=== PATIENT | female | born 1940 | race Caucasian/White ===

== ENCOUNTER 2016-12-16 11:04 | Emergency (ER) | payer MEDICARE, OTHER ==
[2016-12-16 11:15] VITALS: BP 165/94
--- NOTE | 2016-12-16 12:01 | CR ---
Clinical history: 75-year-old female with abdominal pain and a history of colon cancer surgery, 23 years ago. Interpretation: 1. Atheromatous calcifications involving the aortoiliac arteries and major branches.. 2. Numerous surgical clips left upper quadrant abdomen (left renal shadow not appreciated). 3. Mild levorotoscoliosis and signs of chronic L4-5 lumbar disc disease/arthritis. 4. No other foreign body, abdominal soft tissue mass, or signs of mechanical bowel obstruction. 5. Mild cardiomegaly. Lung bases clear. 6. No free subdiaphragmatic air. 7. Impacted fracture right femoral neck (age indeterminate). CONCLUSION: Postoperative and senescent changes of the abdomen. Otherwise nonspecific plain film exa m abdomen. Lower lumbar disc disease and impacted right femoral neck fracture.
--- NOTE | 2016-12-16 12:32 | EDM.PDOC ---
ED HPI GI/ABDOMINAL - General Chief Complaint: Abdominal Pain Stated Complaint: [id number] AB PAIN Time Seen by Provider: 12/16/16 12:15 Source of Information: Reports: Patient History Limitations: Reports: No limitations - History of Present Illness INITIAL COMMENTS - FREE TEXT/NARRATIVE: This 75 yo female patient reports to the ED with diffuse abdominal pain. The patient reports that she has a history of colon cancer (25 years ago) and 3 surgeries since that time for bowel obstructions. The patient reports she normally has a bowel movement after eating, but has not had a bowel movement since eating last night. The patient reports she took Tums, but has not had symptom relief at this time. Symptom Onset Date: 12/16/16 Timing/Duration: Reports: Constant Location: generalized Quality: Reports: cramping Severity: moderate Improves with: Reports: other (passing gas) Worsens with: Reports: palpation - Related Data Allergies/ADRs: Allergies Allergy/AdvReac Type Severity Reaction Status Date / Time Penicillins Allergy Hives Verified 12/16/16 11:16 Home Meds: Home Meds Allopurinol [Zyloprim] 100 mg PO BEDTIME 12/16/16 [History] Aspirin [Halfprin] 81 mg PO DAILY 12/16/16 [History] Calcitriol [Rocaltrol] 0.25 mcg PO BID 12/16/16 [History] Calcium Carbonate/Vitamin D3 [Os-Artie 500+D] 1 tab PO ASDIRECTED 12/16/16 [ History] Clopidogrel Bisulfate [Clopidogrel] 75 mg PO DAILY 12/16/16 [History] Cyanocobalamin (Vitamin B12) [Vitamin B12] 1,000 mg PO BEDTIME 12/16/16 [History ] Ferrous Sulfate [Iron] 325 mg PO DAILY 12/16/16 [History] Metoprolol Tartrate 25 mg PO BID 12/16/16 [History] Pantoprazole [Protonix] 40 mg PO ONETIME 12/16/16 [History] amLODIPine [Norvasc] 10 mg PO DAILY 12/16/16 [History] Past Medical History HEENT History: Reports: Impaired vision Other HEENT History: wears glasses Cardiovascular History: Reports: Blood clots/VTE/DVT, Hypertension Respiratory History: Reports: None Gastrointestinal History: Reports: GERD Genitourinary History: Reports: None 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 Musculoskeletal History: Reports: None Neurological History: Reports: None Psychiatric History: Reports: None Endocrine/Metabolic History: Reports: None Hematologic History: Reports: None Immunologic History: Reports: None Oncologic (Cancer) History: Reports: Colon Dermatologic History: Reports: None - Infectious Disease History Infectious Disease History: Reports: Chicken pox, Measles, Mumps - Past Surgical History Head Surgeries/Procedures: Reports: None Cardiovascular Surgical History: Reports: Vascular surgery GI Surgical History: Reports: Appendectomy, Colon, Colonoscopy Social & Family History - Tobacco Use Smoking Status *Q: Never Smoker Second Hand Smoke Exposure: No - Caffeine Use Caffeine Use: Reports: Coffee - Recreational Drug Use Recreational Drug Use: No ED ROS GENERAL - Review of Systems Review Of Systems: ROS reveals no pertinent complaints other than HPI. ED EXAM, GI/ABD - Physical Exam Exam: See Below Exam Limited By: No limitations General Appearance: alert, WD/WN, moderate distress, thin Eyes: bilateral: normal appearance, EOMI Ears: normal external exam, normal canal, hearing grossly normal, normal TMs Nose: normal inspection, normal mucosa, no blood Throat/Mouth: Normal inspection, Normal lips, Normal teeth, Normal gums, Normal oropharynx, Normal voice, No airway compromise Head: atraumatic, normocephalic Neck: normal inspection, supple, non-tender, full range of motion Respiratory/Chest: no respiratory distress, lungs clear, normal breath sounds, no accessory muscle use, chest non-tender Cardiovascular: normal peripheral pulses, regular rate, rhythm, no edema, no gallop, no JVD, no murmur, no rub GI/Abdominal: normal bowel sounds, no organomegaly, no abnormal bruit, no mass, tenderness (diffuse), distention (moderate) (Female) Exam: Deferred Rectal (Female) Exam: Deferred Back Exam: normal inspection, full range of motion, NT Extremities: normal inspection, normal range of motion, non-tender, normal capillary refill, no pedal edema Neurological: alert, oriented, CN II-XII intact, normal cognition, normal gait, normal reflexes, no motor/sensory deficits Psychiatric: normal affect, normal mood Skin Exam: Warm, Dry, Intact, Normal color, No rash Lymphatic: no adenopathy Course - Vital Signs Last Recorded V/S: Last Vital Signs Temp 35.8 C 12/16/16 11:10 Pulse 85 12/16/16 11:10 Resp 16 12/16/16 11:10 BP 165/94 H 12/16/16 11:10 Pulse Ox 100 12/16/16 11:10 - Orders/Labs/Meds Labs: Laboratory Tests 12/16/16 12/16/16 Range/Units 11:38 11:38 WBC 11.1 H (5.0-10.0) 10^3/uL RBC 4.64 (4.2-5.4) 10^6/uL Hgb 15.0 (12.0-16.0) g/dL Hct 44.2 (37.0-47.0) % MCV 95.3 (80-100) fL MCH 32.3 (27.0-34.0) pg MCHC 33.9 (33.0-35.0) g/dL Plt Count 245 (150-450) 10^3/uL Neut % (Auto) 84.4 H (42.2-75.2) % Lymph % (Auto) 9.3 L (20.5-50.1) % [place] % (Auto) 5.9 (2-8) % Eos % (Auto) 0.2 L (1.0-3.0) % Baso % (Auto) 0.2 (0.0-1.0) % Sodium 139 (135-145) mmol/L Potassium 3.8 (3.6-5.0) mmol/L Chloride 97 L (101-111) mmol/L Carbon Dioxide 32.0 H (21.0-31.0) mmol/L Anion Gap 13.8 BUN 22 H (7-18) mg/dL Creatinine 1.4 H (0.6-1.3) mg/dL Est Cr Clr Drug Dosing 26.51 mL/min Estimated GFR (MDRD) 36 BUN/Creatinine Ratio 15.71 Glucose 132 H (74-105) mg/dL Calcium 10.4 H (8.4-10.2) mg/dl Total Bilirubin 1.0 (0.2-1.0) mg/dL AST 43 H (10-42) IU/L ALT 32 (10-60) IU/L Alkaline Phosphatase 80 (42-121) IU/L Total Protein 6.9 (6.7-8.2) g/dl Albumin 4.6 (3.2-5.5) g/dl Globulin 2.3 Albumin/Globulin Ratio 2.00 Departure - Departure Time of Disposition: 12:28 Disposition: Home, Self-Care 01 Condition: fair Clinical Impression: Abdominal gas pain Abdominal pain Qualifiers: Abdominal location: generalized Qualified Code(s): R10.84 - Generalized abdominal pain Instructions: Abdominal Pain, Adult, [id number] Forms: ED Department Discharge Care Plan Goals: The patient was advised of the examination, lab and x-ray results during the visit. The patient was encouraged to continue to ambulate to allow the bowel gas to pass. The patient may increase her oral fluid intake over the next 24-48 hours. If the patient has any additional symptoms or concerns, the patient should follow-up with her primary care facility or return to the emergency department.
== END 2016-12-16 12:42 | disposition home or self-care (01) ==
LOC: DL.ED 11:04
DX: R14.1 Gas pain (principal); K21.9 Gastro-esophageal reflux disease without esophagitis; Z88.0 Allergy status to penicillin; Z79.899 Other long term (current) drug therapy
CPT/HCPCS: 36415; 74020; 80053; 85025; 99282; 99284

== ENCOUNTER 2020-06-22 12:09 | Emergency (ER) | payer MEDICARE, OTHER ==
[2020-06-22 12:24] VITALS: BP 111/62; PULSE 79
[2020-06-22 13:31] LABS: ANION GAP 10.3 mEq/L (7-13)
[2020-06-22 14:07] LABS: PTT,PARTIAL THROMBOPLSTIN TIME 26.7 SEC (22.0-34.0)
--- NOTE | 2020-06-22 15:04 | EDM.PDOC ---
Scribed by Rosie Gerard 06/22/20 [id number] for Medina Guy MD ED HPI GENERAL MEDICAL PROBLEM - General Chief Complaint: Gastrointestinal Problem Stated Complaint: BLOOD IN STOOLS Time Seen by Provider: 06/22/20 12:50 Source of Information: Reports: Patient, RN, RN Notes Reviewed History Limitations: Reports: No Limitations - History of Present Illness INITIAL COMMENTS - FREE TEXT/NARRATIVE: Patient presents to ED with a history of colon cancer with a second colon resection 3 weeks ago. She was in the hospital for 2 weeks. Normal bowel movement. Good appetite. Minimal pain. Now has blood in stool. They were told to expect some blood in the surgery, but since it was normal up until now with a large amount they became concerned. Minimal abdominal pain. Eating well. No other concerns or complaints. Primary care notified and platelets were 1,000 at her last visit. She was told to watch for any abnormal bleeding. Onset: Today - Related Data Allergies Allergy/AdvReac Type Severity Reaction Status Date / Time cephalexin Allergy Rash Verified 06/22/20 12:40 Penicillins Allergy Hives Verified 06/22/20 12:40 ERYTHROMYCIN Allergy UNKNOWN Uncoded 05/24/20 13:30 Home Meds: Home Meds Allopurinol [Zyloprim] 100 mg PO BEDTIME 12/16/16 [History] Aspirin [Halfprin] 81 mg PO DAILY 12/16/16 [History] Calcium Carbonate/Vitamin D3 [Os-Artie 500+D] 1 tab PO ASDIRECTED 12/16/16 [History] Clopidogrel Bisulfate [Clopidogrel] 75 mg PO DAILY 12/16/16 [History] Cyanocobalamin (Vitamin B12) [Vitamin B12] 1,000 mg PO BEDTIME 12/16/16 [History] Ferrous Sulfate [Iron] 325 mg PO DAILY 12/16/16 [History] Metoprolol Tartrate 25 mg PO BID 12/16/16 [History] Pantoprazole [Protonix] 40 mg PO ONETIME 12/16/16 [History] amLODIPine [Norvasc] 10 mg PO DAILY 12/16/16 [History] calcitrioL [Rocaltrol] 0.25 mcg PO BID 12/16/16 [History] Past Medical History HEENT History: Reports: Impaired Vision Other HEENT History: wears glasses Cardiovascular History: Reports: Blood Clots/VTE/DVT, Hypertension Respiratory History: Reports: None Gastrointestinal History: Reports: GERD Genitourinary History: Reports: None 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 Musculoskeletal History: Reports: None Neurological History: Reports: None Psychiatric History: Reports: None Endocrine/Metabolic History: Reports: None Hematologic History: Reports: None Immunologic History: Reports: None Oncologic (Cancer) History: Reports: Colon Dermatologic History: Reports: None - Infectious Disease History Infectious Disease History: Reports: Chicken Pox, Measles, Mumps - Past Surgical History Head Surgeries/Procedures: Reports: None Cardiovascular Surgical History: Reports: Vascular Surgery GI Surgical History: Reports: Appendectomy, Colon, Colonoscopy Social & Family History - Tobacco Use Smoking Status *Q: Never Smoker - Caffeine Use Caffeine Use: Reports: Coffee - Recreational Drug Use Recreational Drug Use: No ED ROS GENERAL - Review of Systems Review Of Systems: Comprehensive ROS is negative, except as noted in HPI. ED EXAM, GI/ABD - Physical Exam Exam: See Below Exam Limited By: No Limitations General Appearance: Alert, WD/WN, No Apparent Distress Eyes: Bilateral: Normal Appearance Ears: Normal External Exam, Normal Canal, Hearing Grossly Normal, Normal TMs Nose: Normal Inspection, Normal Mucosa, No Blood Throat/Mouth: Normal Inspection, Normal Lips, Normal Teeth, Normal Gums, Normal Oropharynx, Normal Voice, No Airway Compromise Head: Atraumatic, Normocephalic Neck: Normal Inspection, Supple, Non-Tender, Full Range of Motion Respiratory/Chest: No Respiratory Distress, Lungs Clear, Normal Breath Sounds, No Accessory Muscle Use, Chest Non-Tender Cardiovascular: Normal Peripheral Pulses, Regular Rate, Rhythm, No Edema, No Gallop, No JVD, No Murmur, No Rub GI/Abdominal Exam: Other (belly was a little distended on palpation, otherwie unremarkable. ) (Female) Exam: Deferred Rectal (Female) Exam: Deferred Back Exam: Normal Inspection, Full Range of Motion, NT Extremities: Normal Inspection, Normal Range of Motion, Non-Tender, Normal Capillary Refill, No Pedal Edema Neurological: Alert, Oriented, CN II-XII Intact, Normal Cognition, Normal Gait, Normal Reflexes, No Motor/Sensory Deficits Psychiatric: Normal Affect, Normal Mood Skin Exam: Warm, Dry, Intact, Normal Color, No Rash Lymphatic: No Adenopathy Course - Vital Signs Last Recorded V/S: Last Vital Signs Temp 97.5 F 06/22/20 12:23 Pulse 79 06/22/20 12:23 Resp 18 06/22/20 12:23 BP 111/62 06/22/20 12:23 Pulse Ox 95 06/22/20 12:23 - Orders/Labs/Meds Orders: Active Orders 24 hr Category Date Time Status UA RFX LAYO AND CULT IF INDIC [URIN] Urgent Lab 06/22/20 14:44 Ordered Labs: Laboratory Tests 06/22/20 06/22/20 06/22/20 Range/Units 13:04 13:04 13:04 WBC 9.3 (5.0-10.0) 10^3/uL RBC 3.14 L (4.2-5.4) 10^6/uL Hgb 9.4 L D (12.0-16.0) g/dL Hct 28.3 L (37.0-47.0) % MCV 90.1 D (80-100) fL MCH 29.9 (27.0-34.0) pg MCHC 33.2 (33.0-35.0) g/dL Plt Count 1129 H* D (150-450) 10^3/uL Neut % (Auto) 70.6 (42.2-75.2) % Lymph % (Auto) 18.0 L (20.5-50.1) % [place] % (Auto) 10.7 H (2-8) % Eos % (Auto) 0.4 L (1.0-3.0) % Baso % (Auto) 0.3 (0.0-1.0) % Add Manual Diff Yes Neutrophils % (Manual) 63 (42-75) % Band Neutrophils % 9 % Lymphocytes % (Manual) 19 L (20-50) % Monocytes % (Manual) 9 H (2-8) % PT 10.8 (9.0-12.0) SEC INR 1.1 (0.9-1.2) APTT 26.7 (22.0-34.0) SEC Fibrinogen (200-400) mg/dL Sodium 137 (136-145) mmol/L Potassium 4.3 (3.5-5.1) mmol/L Chloride 104 (98-107) mmol/L Carbon Dioxide 27 (21-32) mmol/L Anion Gap 10.3 (7-13) mEq/L BUN 16 (7-18) mg/dL Creatinine 1.20 H (0.55-1.02) mg/dL Est Cr Clr Drug Dosing 29.28 mL/min Estimated GFR (MDRD) 43 BUN/Creatinine Ratio 13.3 (No establ ref range) Glucose 93 (74-99) mg/dL Calcium 7.6 L (8.5-10.1) mg/dL Total Bilirubin 0.2 (0.2-1.0) mg/dL AST 12 L (15-37) U/L ALT 14 (14-59) U/L Alkaline Phosphatase 96 (46-116) U/L Total Protein 4.9 L (6.4-8.2) g/dL Albumin 1.3 L (3.4-5.0) g/dL Globulin 3.6 Albumin/Globulin Ratio 0.36 09/26/20 Range/Units 13:04 WBC (5.0-10.0) 10^3/uL RBC (4.2-5.4) 10^6/uL Hgb (12.0-16.0) g/dL Hct (37.0-47.0) % MCV (80-100) fL MCH (27.0-34.0) pg MCHC (33.0-35.0) g/dL Plt Count (150-450) 10^3/uL Neut % (Auto) (42.2-75.2) % Lymph % (Auto) (20.5-50.1) % [place] % (Auto) (2-8) % Eos % (Auto) (1.0-3.0) % Baso % (Auto) (0.0-1.0) % Add Manual Diff Neutrophils % (Manual) (42-75) % Band Neutrophils % % Lymphocytes % (Manual) (20-50) % Monocytes % (Manual) (2-8) % PT (9.0-12.0) SEC INR (0.9-1.2) APTT (22.0-34.0) SEC Fibrinogen > 500 H (200-400) mg/dL Sodium (136-145) mmol/L Potassium (3.5-5.1) mmol/L Chloride (98-107) mmol/L Carbon Dioxide (21-32) mmol/L Anion Gap (7-13) mEq/L BUN (7-18) mg/dL Creatinine (0.55-1.02) mg/dL Est Cr Clr Drug Dosing mL/min Estimated GFR (MDRD) BUN/Creatinine Ratio (No establ ref range) Glucose (74-99) mg/dL Calcium (8.5-10.1) mg/dL Total Bilirubin (0.2-1.0) mg/dL AST (15-37) U/L ALT (14-59) U/L Alkaline Phosphatase (46-116) U/L Total Protein (6.4-8.2) g/dL Albumin (3.4-5.0) g/dL Globulin Albumin/Globulin Ratio Departure - Departure Time of Disposition: 14:59 Disposition: Home, Self-Care 01 Condition: Good Clinical Impression: GI bleed Qualifiers: GI bleed type/associated pathology: unspecified gastrointestinal hemorrhage type Qualified Code(s): K92.2 - Gastrointestinal hemorrhage, unspecified - Discharge Information *PRESCRIPTION DRUG MONITORING PROGRAM REVIEWED*: Not Applicable *COPY OF PRESCRIPTION DRUG MONITORING REPORT IN PATIENT CAMILA: Not Applicable Instructions: Lower Gastrointestinal Bleeding Forms: ED Department Discharge Additional Instructions: Call Dr. Calderon on Wednesday Call/return to ER if you notice more bleeding, increased bleeding or start feeling lightheaded Follow up with PCP in 2-3 days. Sepsis Event Note (ED) - Evaluation Sepsis Screening Result: No Definite Risk - Focused Exam Vital Signs: Vital Signs Temp Pulse Resp BP Pulse Ox 06/22/20 12:23 97.5 F 79 18 111/62 95 - My Orders Last 24 Hours: My Active Orders 06/22/20 14:44 UA RFX LAYO AND CULT IF INDIC [URIN] Urgent - Assessment/Plan Last 24 Hours: My Active Orders 06/22/20 14:44 UA RFX LAYO AND CULT IF INDIC [URIN] Urgent Assessment:: 79 yo female with acute GI bleed with history of recent colectomy on 05/30/20 and abnormal platelets and fibrinogen. Plan: called and spoke with production team member surgeon Dr. Parham Pt to Call Dr. Calderon on Wednesday Call/return to ER if you notice more bleeding, increased bleeding or start feeling lightheaded Follow up with PCP in 2-3 days. I have read and agree with the documentation that has been completed regarding this visit. By signing this record, I attest that the documentation was completed in my physical presence and is an accurate record of the encounter.
== END 2020-06-22 15:07 | disposition home or self-care (01) ==
LOC: DL.ED 12:09
DX: K92.2 Gastrointestinal hemorrhage, unspecified (principal); K21.9 Gastro-esophageal reflux disease without esophagitis; Z88.1 Allergy status to other antibiotic agents; Z88.0 Allergy status to penicillin; Z79.82 Long term (current) use of aspirin; Z79.899 Other long term (current) drug therapy; Z79.02 Long term (current) use of antithrombotics/antiplatelets
CPT/HCPCS: 36415; 80053; 85025; 85384; 85610; 85730; 99283; 99284